=== PATIENT | female | born 1975 | race Caucasian/White ===

== ENCOUNTER 2023-08-30 12:47 | Outpatient (AMB) | payer OTHER, SELFPAY ==
[2023-08-30 12:51] VITALS: BP 142/86; PULSE 78; O2SAT 97; BMI 44.2
--- NOTE | 2023-08-30 12:51 | A.OFFPC_ITS ---
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 Past medical history significant for osteoarthritis of bilateral needs, left wrist ganglion cyst, left carpal tunnel syndrome. Patient reports has received cortisone injections in the past and left wrist. Patient also reports bilateral knees are almost [id number] and eventually she will need to follow-up with orthopedic doctor for possible knee surgeries. Patient also reports polyarthralgia and bilateral knees, elbows, wrists requesting blood work to rule out other forms of arthritis or autoimmune problems. Will draw CRP, ESR, ARIANA and rheumatoid factor in addition to routine fasting blood work. pap smear: 1 year ago; [facility]. Mammogram: ordered.states has not had one in years. Patient has attended on colonoscopy screening at this time, discussed Cologuard screening with patient patient agreeable to come this. Cologuard ordered enter. eye exam:Due next month, Previous patient [facility] Medical History (Updated 08/30/23 @ 13:23 by SELENA Genao) Left carpal tunnel syndrome Seasonal allergies Family History (Updated 08/30/23 @ 13:10 by SELENA Genao) Mother Myocardial infarction Father Small cell lung cancer Social History (Updated 08/30/23 @ 13:11 by SELENA Genao) Housing: House Alcohol intake: current Alcohol intake frequency: a few times a week Patient Tobacco Use Status: Never used Tobacco Use of substances other than those prescribed or required for medical reasons: No service: No Current occupational status: employed Cognitive needs: No Hearing needs: No Vision needs: No Questionnaire PHQ-9 Over the last 2 weeks, how often have you been bothered by any of the following problems? 1. Little interest or pleasure in doing things: not at all 2. Feeling down, depressed, or hopeless: not at all 3. Trouble falling or staying asleep, or sleeping too much: not at all 4. Feeling tired or having little energy: not at all 5. Poor appetite or overeating: not at all 6. Feeling bad about yourself - or that you are a failure or have let yourself or your family down: not at all 7. Trouble concentrating on things, such as reading the newspaper or watching television: not at all 8. Moving or speaking so slowly that other people could have noticed. Or the opposite - being so fidgety or restless that you have been moving around a lot more than usual: not at all 9. Thoughts that you would be better off or of hurting yourself in some way: not at all Total score: 0 Depression Screening Interpretation: Negative Depression Screening Done: Yes Source: Developed by Drs. Santi Reed, Radha Mercado, Zackery Paul and colleagues, with an educational markus from [employer]. Thrive Questionnaire Date Thrive assessed: 08/30/23 I am a: Patient What is your living situation today?: I have a steady place to live Within the past 12 months, did the food you bought not last and you didn't have the money to get more?: Never true Within the past 12 months, did you worry whether your food would run out before you got money to buy more?: Never true Do you have trouble paying for medicines?: No Do you have trouble getting transportation to medical appointments?: No Do you have trouble paying your heating and electricity bill?: No Do you have trouble taking care of your child, family member or friend?: No Do you have trouble with day-to-day activities such as bathing, preparing meals, shopping, managing finances, etc.?: No Are you currently unemployed and looking for a job?: No Are you interested in more education?: No AUDIT C Alcohol Use Questionnaire (AUDIT-C) 1. How often do you have a drink containing alcohol?: 2-3 times a week 2. How many drinks containing alcohol do you have on a typical day when you are drinking?: 1 or 2 3. How often do you have six or more drinks on one occasion?: Never Total Score: 3 CEM-7 AMB Questionnaire CEM-7 Date CEM - 7 assessed: 08/30/23 Feeling nervous, anxious, or on edge: 0 = Not at all Not being able to stop or control worryin = Not at all Worrying too much about different things: 0 = Not at all Trouble relaxin = Not at all Being so restless that it is hard to sit still: 0 = Not at all Becoming easily annoyed or irritable: 0 = Not at all Feeling afraid as if something awful might happen: 0 = Not at all Total CEM-7 score (0-4 normal; 5-9 mild; 10-14 moderate; 15-21 severe): 0 Source: Developed by Drs. Santi Reed, Radha Mercado, Zackery Paul and colleagues, with an educational markus from [employer]. Review of Systems Const Denies chills, Denies fatigue, Denies fever(s) and Denies poor appetite Eyes Denies no additional complaints ENT Reports Normal hearing present Card Denies chest pain, Denies syncope, Denies rapid heart rate and Denies dyspnea Resp Denies cough and Denies dyspnea GI Denies change in stool character, Denies constipation, Denies diarrhea, Denies nausea and Denies vomiting Denies urinary frequency, Denies dysuria and Denies urinary urgency Neuro Reports Normal hearing present, Denies confusion and Denies syncope Psych Denies confusion Endo Denies fatigue Physical exam (Primary Care) Vital Signs: Last Vital Signs Pulse 78 08/30/23 12:51 BP 142/86 H 08/30/23 12:51 Pulse Ox 97 08/30/23 12:51 Oxygen Delivery Method Room Air 08/30/23 12:51 BMI result Body Mass Index 44.2 Tobacco/Smoking Status: Tobacco use Status Tobacco use date assessed 08/30/23 08/30/23 12:59 Patient Tobacco Use Status Never used Tobacco 08/30/23 13:11 PHQ-9: PHQ-9 Score PHQ-9: Total score 0 08/30/23 13:03 Depression Screening Interpretation: Negative Thrive Assessment: Date of Thrive Assessment Date Thrive assessed 08/30/23 08/30/23 12:59 Const General: No confusion Orientation/consciousness: No confusion HENMT Head: Yes normocephalic and Yes atraumatic Ears: external ears normal and TM's normal bilaterally General nose exam: Normal external nose present and Normal nasal mucous me mbranes and turbinates present Face and sinus: Yes normal facial exam and Yes sinuses nontender Mouth: moist mucous membranes Throat: Yes tonsils normal Eyes Conjunctivae: conjunctivae normal Sclerae: sclerae normal Pupils: Equal, round and reactive pupils present and Pupils normal by confrontation EOM: EOMs intact bilaterally Direct Ophthalmoscopy: normal light reflex Neck Neck: Yes no lymphadenopathy and Yes supple Thyroid: Thyroid normal Chest Chest palpation & inspection: normal inspection of the chest Resp Effort & Inspection: normal respiratory effort Auscultation: clear to auscultation bilaterally, no crackles, no rhonchi and no wheezes Cardio Rate: regular rate Rhythm: regular rhythm Peripheral pulses: radial pulses present and dorsalis pedis present GI Inspection: Yes normal to inspection Palpation (GI): Soft to palpation, nontender and No hepatosplenomegaly present Auscultation: normoactive bowel sounds Skin General skin exam: no rashes or lesions noted Neuro General: No confusion Cranial nerves: Yes Equal, round and reactive pupils present and Yes Normal hearing present Cognition (Neuro): normal cognition Gait exam (Neuro): Normal gait present Motor exam (neuro): 5/5 motor strength present throughout Deep tendon reflexes (DTR's): Right brachioradialis reflex intensity grade: 2+, Left brachioradialis reflex intensity grade: 2+, Right patellar reflex intensity grade: 2+ and Left patellar reflex intensity grade: 2+ Extrem General: No edema Assessment and Plan Assessment & Plan (1) Polyarthralgia: Code(s): M25.50 - Pain in unspecified joint Plan: ESR,CRP,RF and ARIANA ordered to further evaluate. (2) Physical exam, annual: Code(s): Z00.00 - Encounter for general adult medical examination without abnormal findings Plan: Follow up in 1 year for physical exam Plan Follow up in 2 months. Orders: Orders Comprehensive Blessing. Panel Fast Today Z13.1 - Encounter for screening for d iabetes mellitus Lipid Panel Today Z13.220 - Encounter for screening for lipoid disorders TSH reflex Free T4 Today Z13.29 - Encounter for screening for other suspected endocrine disorder Vitamin D 25-OH Total Today Z13.21 - Encounter for screening for nutritional disorder Erythrocyte Sedimentation Rate Today M25.50 - Pain in unspecified joint ARIANA Reflex Titer and Pattern Today M25.50 - Pain in unspecified joint C Reactive Protein Today M25.50 - Pain in unspecified joint MM screening mammo BI Today Z12.31 - Encounter for screening mammogram for malignant neoplasm of breast Complete Blood Count Auto Diff Today Z13.0 - Encounter for screening for diseases of the blood and blood-forming organs and certain disorders involving the immune mechanism Rheumatoid Factor Today M25.50 - Pain in unspecified joint Referrals Cologuard Test Z12.11 - Encounter for screening for malignant neoplasm of colon Coding Level of Care Code New Pt Prev Care 40-64y(02860) Diagnoses Polyarthralgia M25.50 Physical exam, annual Z00.00
== END 2023-08-30 13:27 | disposition home or self-care (01) ==
PROVIDERS: PCP Nurse Practitioner Family; Visit Provider Nurse Practitioner Family
DX: M25.50 Pain in unspecified joint (principal); Z00.00 Encounter for general adult medical examination without abnormal findings
CPT/HCPCS: 99386

== ENCOUNTER 2023-09-06 07:15 | Outpatient (REF) | payer OTHER, SELFPAY ==
[2023-09-06 11:13] LABS: MANUAL DIFF FLAG NO
[2023-09-06 11:35] LABS: Basophils Absolute Auto 0.1 X10*3/uL (0.0-0.2); Basophils Percent Auto 0.8 % (0-2); Eosinophils Absolute Auto 0.3 X10*3/uL (0.0-0.4); Eosinophils Percent Auto 3.8 % (0-4); Hematocrit 44.7 % (37.0-47.0); Hemoglobin 14.2 g/dl (12.0-16.0); Imm Gran Abs Auto 0.02 X10*3/uL (0.00-0.03); Imm Gran Pct Auto 0.3 % (0.0-0.4); Lymphocytes Absolute Auto 1.7 X10*3/uL (1.2-4.9); Lymphocytes Percent Auto 26.1 % (20-40); Mean Corpuscular HGB Conc 31.8 g/dl (31.0-35.0); Mean Corpuscular Hemoglobin 28.3 pg (27.0-33.0); Mean Platelet Volume 10.7 fL (9.4-12.3); Monocytes Absolute Auto 0.4 X10*3/uL (0.1-1.2); Monocytes Percent Auto 6.1 % (2-11); Neutrophils Absolute Auto 4.2 x10*3/uL (2.0-8.3); Neutrophils Percent Auto 62.9 % (45-73); Platelet Count 299 X10*3/uL (160-400); Red Blood Count 5.02 X10*6/uL (4.20-5.50); Red Cell Distribution Width 13.1 % (11.0-16.0); White Blood Count 6.6 X10*3/uL (4.8-10.8)
[2023-09-06 11:54] LABS: Rheumatoid Factor < 13.0 IU/mL (<15.0)
[2023-09-06 12:24] LABS: Erythrocyte Sedimentation Rate 25 MM/HR (0-20)
[2023-09-06 12:31] LABS: Alanine Aminotransferase 21 U/L (0-31); Albumin Level 4.2 g/dL (3.5-5.0); Alkaline Phosphatase 69 U/L (39-117); Anion Gap 10 (12-20); Aspartate Amino Transferase 16 U/L (5-31); Bilirubin Total 0.6 mg/dL (0.0-1.0); Blood Urea Nitrogen 11 mg/dL (9-16); C Reactive Protein 1.22 mg/dL (< or = 0.50); Calcium 9.3 mg/dL (8.4-10.2); Carbon Dioxide 27 mmol/L (22-29); Chloride 107 mmol/L (96-108); Cholesterol 145 mg/dL (<200); Estimated Glomerular Filt Rate > 60; Glucose Fasting 106 mg/dL (60-99); HDL Cholesterol 44 mg/dL (>40); LDL Cholesterol Calculated 86 mg/dL (<100); Potassium 4.2 mmol/L (3.3-5.1); Sodium 140 mmol/L (135-145); TSH reflex Free T4 2.43 uIU/mL (0.32-4.0); Total Protein 7.4 g/dL (6.5-8.0); Triglycerides 76 mg/dL (<150); Vitamin D 25-OH Total 14.1 ng/mL (>30)
[2023-09-12 10:04] LABS: Anti Nuclear Antibody Screen NEGATIVE (NEGATIVE)
== END 2023-09-06 07:16 | disposition home or self-care (01) ==
LOC: HO.WFDLDS 07:15
PROVIDERS: Visit Provider Nurse Practitioner Family
DX: Z13.0 Encounter for screening for diseases of the blood and blood-forming organs and certain disorders involving the immune mechanism (principal); Z13.21 Encounter for screening for nutritional disorder; Z13.220 Encounter for screening for lipoid disorders; Z13.29 Encounter for screening for other suspected endocrine disorder; M25.50 Pain in unspecified joint
CPT/HCPCS: 36415; 80053; 80061; 82306; 84443; 85025; 85652; 86038; 86140; 86431

== ENCOUNTER 2023-11-05 14:59 | Outpatient (REF) | payer OTHER, SELFPAY ==
--- NOTE | ~2023-11-05 | MM_ITS ---
EXAMINATION: MM SCREENING DIGITAL BREAST TOMOSYNTHESIS, BILATERAL CLINICAL INFORMATION: Screening. Asymptomatic. COMPARISON: Mammography: This is a baseline mammogram. TECHNIQUE: Digital breast tomosynthesis is performed in both the craniocaudal and mediolateral oblique views along with computer-aided detection (CAD). Synthesized 2D images are generated from the tomosynthesis. FINDINGS: There are scattered areas of fibroglandular density (ACR BI-RADS breast composition Category b). There are no significant masses, abnormal calcifications, or other abnormalities. MM/MM tomosynthesis screening BI IMPRESSION: No mammographic evidence of malignancy. ASSESSMENT: BI-RADS BI-RADS 1 - Negative RECOMMENDATION: Routine annual mammography screening. 1 year F/U This examination should not preclude the clinical evaluation of a suspicious palpable abnormality. This patient's information was entered into a reminder system with a target due date for their next mammogram.
== END 2023-11-05 15:00 | disposition home or self-care (01) ==
LOC: HO.MAMMO 14:59
PROVIDERS: Visit Provider Nurse Practitioner Family
DX: Z12.31 Encounter for screening mammogram for malignant neoplasm of breast (principal)
CPT/HCPCS: 77063; 77067

== ENCOUNTER → 2023-11-05 15:00 | Outpatient (BNV) | payer OTHER, SELFPAY | PROVIDERS: Visit Provider Radiology Diagnostic Radiology | DX: Z12.31 Encounter for screening mammogram for malignant neoplasm of breast (principal) | CPT/HCPCS: 77063; 77067 ==

== ENCOUNTER 2024-05-13 11:26 | Outpatient (AMB) | payer OTHER, SELFPAY ==
--- NOTE | 2024-05-13 11:36 | MHC.PC.OV ---
Intake Visit Reasons: Throat pain Allergies Seasonal Allergies Allergy (Mild, Verified 08/30/23 13:06) Unknown Tobacco use date assessed: 08/30/23 Dental Screening Dental Screen Date: 08/30/23 [facility] Medical History (Updated 09/30/23 @ 07:10 by SELENA Genao) Left carpal tunnel syndrome Seasonal allergies Family History (Updated 08/30/23 @ 13:10 by SELENA Genao) Mother Myocardial infarction Father Small cell lung cancer Social History (Updated 08/30/23 @ 13:11 by SELENA Genao) Housing: House Alcohol intake: current Alcohol intake frequency: a few times a week Patient Tobacco Use Status: Never used Tobacco service: No Current occupational status: employed Cognitive needs: No Hearing needs: No Vision needs: No Questionnaire Thrive Questionnaire Date Thrive assessed: 08/30/23 CEM-7 AMB Questionnaire CEM-7 Date CEM - 7 assessed: 08/30/23 Source: Developed by Drs. Santi Reed, Radha Mercado, Zackery Paul and colleagues, with an educational markus from [employer]. Physical exam (Primary Care) Tobacco/Smoking Status: Tobacco use Status Tobacco use date assessed 08/30/23 08/30/23 12:59 Patient Tobacco Use Status Never used Tobacco 08/30/23 13:11 Thrive Assessment: Date of Thrive Assessment Date Thrive assessed 08/30/23 08/30/23 12:59 Coding
--- NOTE | 2024-05-13 11:37 | MHC.OFFWIV ---
Intake Vital Signs 05/13/24 11:42 Height 5 ft 9.5 in Weight 315 lb 6 oz BMI 45.9 BP 136/88 Blood Pressure Location Rt brachial Position Sitting Respiration 14 Pulse 74 Pulse Source Pulse Oximeter Temp 98.6 F Temp Source Oral Pulse Oximetry (%) 97 Oxygen Delivery Method Room Air Intake Visit Reasons: Throat pain Intake Note: Throat pain, right ear pain, chest congestion. Patient Tobacco Use Status: Never used Tobacco Allergies Seasonal Allergies Allergy (Mild, Verified 05/13/24 11:40) Unknown Medication List - Last Reconciled 05/13/24 by Tiffany Ndiaye PA-C loratadine (Claritin) 10 mg PO DAILY Do you need a note to return to daycare/school/sports/work: Yes (If she has to be out) HPI Throat pain HPI Details Patient is a 48-year-old female who presents today with complaints possible strep throat. She says that she has a history of seasonal allergies and has been congested for the last few weeks but over the weekend she started with a sore throat. She thought initially was just postnasal drip related but her friend tested positive for strep throat. She says that they were together. She states that she then made this appointment because over the last 24 hours her right ear has become significantly painful. No decreased hearing. The ear pain radiates to her throat. No difficulty swallowing. No fevers or chills. States that she has had green nasal discharge. No sinus pain but does feel congested. [facility] Medical History (Updated 05/13/24 @ 12:48 by Tiffany Ndiaye PA-C) Left carpal tunnel syndrome Seasonal allergies Family History (Updated 08/30/23 @ 13:10 by SELENA Genao) Mother Myocardial infarction Father Small cell lung cancer Social History (Updated 08/30/23 @ 13:11 by SELENA Genao) Housing: House Alcohol intake: current Alcohol intake frequency: a few times a week Patient Tobacco Use Status: Never used Tobacco service: No Current occupational status: employed Cognitive needs: No Hearing needs: No Vision needs: No Physical Exam Vital Signs: Last Vital Signs Temp 98.6 F 05/13/24 11:42 Pulse 74 05/13/24 11:42 Resp 14 05/13/24 11:42 BP 136/88 05/13/24 11:42 Pulse Ox 97 05/13/24 11:42 Oxygen Delivery Method Room Air 05/13/24 11:42 BMI result Body Mass Index 45.9 Const Orientation/consciousness: patient oriented x3 HEENT Ears: hearing grossly normal bilaterally, TM normal on the left and TM abnormal bulging, erythematous and with fluid behind the TM General nose exam: Abnormal mucous membranes and turbinates present erythematous and Nasal discharge present clear Face and sinus: Yes sinuses nontender Throat: Yes uvula midline, Yes posterior oropharynx abnormal (Erythematous) and Yes postnasal drainage Neck Thyroid: Thyroid normal Lymphatic: no lymphadenopathy noted Resp Auscultation: clear to auscultation bilaterally Cardio Rate: regular rate Rhythm: regular rhythm Heart sounds: S1 normal heart sound present and S2 normal heart sound present Skin General skin exam: no rashes or lesions noted Neuro General: patient oriented x3, gait normal and no focal motor deficits Results AMB Rapid Strep AMB Rapid Strep Negative Last Edit by Enedina Saldaña CMA on 05/13/24 11:45 Results Reviewed Results Reviewed: Laboratory Last Values Strep Scn Rapid Clinic Negative 05/13/24 11:43 Assessment & Plan Assessment & Plan (1) Otitis media of right ear: Code(s): H66.91 - Otitis media, unspecified, right ear Qualifiers: Otitis media type: suppurative Chronicity: acute Recurrence: non-recurrent Spontaneous tympanic membrane rupture: without spontaneous rupture Qualified Code(s): H66.001 - Acute suppurative otitis media without spontaneous rupture of ear drum, right ear Plan: Rapid strep negative. We will treat with Augmentin for an otitis media. Discussed risks and benefits and adverse effects of this medication including GI upset. Continue with Claritin and Flonase. Follow up if no improvement or if anything worsens or changes. Patient understands and agrees with the plan. Orders: Orders AMB Rapid Strep Screen Today J02.9 - Acute pharyngitis, unspecified Medications: New amoxicillin-pot clavulanate 875-125 mg 1 tab PO Q12H 20 tabs 0RF Coding Level of Care Code Est Pt Level 3 (54342) Diagnoses Non-recurrent acute suppurative otitis media of right ear without spontaneous rupture of tympanic membrane H66.001 Otitis media type: suppurative Chronicity: acute Recurrence: non-recurrent Spontaneous tympanic membrane rupture: without spontaneous rupture
[2024-05-13 11:42] VITALS: BP 136/88; PULSE 74; RESP 14; TEMP 37; O2SAT 97; BMI 45.9
== END 2024-05-13 12:01 | disposition home or self-care (01) ==
PROVIDERS: Visit Provider Physician Assistant
DX: H66.001 Acute suppurative otitis media without spontaneous rupture of ear drum, right ear (principal); J02.9 Acute pharyngitis, unspecified
CPT/HCPCS: 87880; 99213